=== PATIENT | female | born 1985 | race Caucasian/White ===

== ENCOUNTER 2019-08-12 14:28 | Outpatient (RCR) | payer OTHER, SELFPAY ==
[2019-08-15] MEDS: RHO(D) IMMUNE GLOBULIN 300 MCG SYRINGE IM (18:20)
[2019-10-15 08:37] VITALS: BP 153/80; PULSE 69
== END 2019-11-10 23:59 | disposition home or self-care (01) ==
LOC: ANHLAB 14:28
PROVIDERS: PCP Family Medicine; Visit Provider Obstetrics & Gynecology
DX: Z29.13 Encounter for prophylactic Rho(D) immune globulin (principal); O36.0990 Maternal care for other rhesus isoimmunization, unspecified trimester, not applicable or unspecified; Z3A.00 Weeks of gestation of pregnancy not specified
CPT/HCPCS: 36415; 90384; 96372; J2790

== ENCOUNTER 2019-10-15 08:41 | Inpatient (IN) | payer OTHER, SELFPAY ==
[2019-10-15] VITALS (99 sets, daily range): BP systolic 97–147; BP diastolic 52–95; PULSE 58–180; RESP 18; TEMP 36.7–36.9; O2SAT 90–100; BMI 42.8
--- NOTE | 2019-10-15 08:50 | WPDOBADMIT ---
Obstetrics - Admit Note Admission Note: record reviewed. Additions to the history and/or subsequent changes in the physical findings follow. 29 y/o at 39 weeks here desiring induction of labor. GBS neg. AVSS NST reactive TOCO: irregular contractions ABD soft, nontender, gravid, vertex EXT nontender Cervix 3/50/-2. AROM with clear fluid. IUPC placed. A: IUP at term with favorable cervix. P: Oxytocin. Anticipate .
[2019-10-15] MEDS: AMPICILLIN 2 GM/NS 100 ML 2 GM/100 ML BAG IVPB (08:57)
[2019-10-15] MEDS: LACTATED RINGERS 1,000 ML 125 ML IV CONT ×2 (08:58→10:06)
--- NOTE | 2019-10-15 09:00 | WPDOBADMIT ---
Obstetrics - Admit Note Admission Note: record reviewed. Additions to the history and/or subsequent changes in the physical findings follow. 33 y/o at 39 2/7 weeks here with contractions. Cervix 6cm on admission. GBS pos. Pregancy otherwise uncomplicated. AVSS NST reactive TOCO: contractions every 2-3 min ABD soft, nontender, gravid, vertex EXT nontender Cervix 6/80/-2 A: IUP at term with labor. GBS pos. P: Ampcillin. Anticipate .
[2019-10-15 09:09] LABS: Basophils Percent Auto 0.4 % (0.2-1.2); Eosinophils Percent Auto 0.5 % (0-4.4); Hematocrit 34.8 % (37.0-47.0); Hemoglobin 11.6 g/dL (12.0-15.0); Immature Granulocyte Absolute 0.04 K/mm3 (0.00-0.031); Immature Granulocyte Percent A 0.5 % (0-0.5); Lymphocytes Absolute Auto 1.84 K/mm3 (0.9-3.2); Lymphocytes Percent Auto 23.2 % (18.3-44.2); Mean Corpuscular HGB Conc 33.3 g/dl (32-36); Mean Corpuscular Hemoglobin 29.9 pg (26-34); Mean Corpuscular Volume 89.7 fl (80-100); Mean Platelet Volume 10.6 fl (7.4-10.4); Monocytes Absolute Auto 0.3 K/mm3 (0.1-0.6); Monocytes Percent Auto 3.7 % (2.6-8.5); Neutrophils Absolute Auto 5.7 K/mm3 (1.3-6.7); Neutrophils Percent Auto 71.7 % (45.5-73.1); Platelet Count Result 147 k/mm3 (150-375); Red Blood Count 3.88 M/mm3 (4.2-5.4); Red Cell Distribution Width 15.2 % (11.5-14.5); White Blood Count 7.9 K/mm3 (4.5-10.0)
--- NOTE | 2019-10-15 09:12 | LDADM ---
This patient, Melba Mcguire, was admitted to Labor/Delivery/Recovery 105 on 10/15/19 at 08:41. Plans for labor, pain management and were discussed with patient. Patient/family oriented to hospital policies and general routines including ID bracelet, bed and alarms, visiting hours, pain management, procedures, bathroom and other care routines, personal items, smoking policy, room service/diet and guest tray routines, security routines, call light, and visiting hours. Patient/Family are encouraged to report perceived risks to care and to ask questions if they do not understand what they are told or what they should do. See OBIX for further documentation.
--- NOTE | 2019-10-15 09:45 | WPDANESEPP ---
Anes - Eval Pre Procedure Procedure: Labor Epidural Date/Time: 10/15/19 09:45 Surgeon: Dr. Higginbotham Preop Diagnosis: Labor Pain Pre Op Diagnosis: labor Patient Data Age: 33 Gender: F Height: 5 ft 6 in Weight: 120.5 kg Last Vital Signs Pulse 77 10/15/19 09:42 BP 141/67 H 10/15/19 09:42 Pulse Ox 100 10/15/19 09:44 Allergies Allergy/AdvReac Type Severity Reaction Status Date / Time No Known Allergies Allergy Unverified 07/12/17 15:37 Laboratory Tests 10/15/19 10/15/19 09:01 09:01 WBC 7.9 K/mm3 K/mm3 (4.5-10.0) RBC 3.88 M/mm3 L M/mm3 (4.2-5.4) Hgb 11.6 g/dL L g/dL (12.0-15.0) Hct 34.8 % L % (37.0-47.0) MCV 89.7 fl fl (80-100) MCH 29.9 pg pg (26-34) MCHC 33.3 g/dl g/dl (32-36) RDW 15.2 % H % (11.5-14.5) Plt Count 147 k/mm3 L k/mm3 (150-375) MPV 10.6 fl H fl (7.4-10.4) Immature Gran % (Auto) 0.5 % % (0-0.5) Neut % (Auto) 71.7 % % (45.5-73.1) Lymph % (Auto) 23.2 % % (18.3-44.2) [place] % (Auto) 3.7 % % (2.6-8.5) Eos % (Auto) 0.5 % % (0-4.4) Baso % (Auto) 0.4 % % (0.2-1.2) Lymph # (Auto) 1.84 K/mm3 K/mm3 (0.9-3.2) [place] # (Auto) 0.3 K/mm3 K/mm3 (0.1-0.6) Eos # (Auto) 0.0 K/mm3 K/mm3 (0-0.3) Baso # (Auto) 0.0 K/mm3 K/mm3 (0.0-0.1) Abs Immat Gran (auto) 0.04 K/mm3 H K/mm3 (0.00-0.031) Absolute Neuts (auto) 5.7 K/mm3 K/mm3 (1.3-6.7) Absolute Nucleated RBC 0.0 K/mm3 K/mm3 (0.0-0.012) Nucleated RBC % 0.0 % % (0.0-0.2) RPR Pending : gestational age (JOSETTE 10/14/19) HCG: positive Patient hx anesthesia problems: none Family hx anesthesia problems: none [facility] Social History Social History (Updated 09/20/19 @ 15:42 by Rena Clayton RN) Smoking status: Never smoker Alcohol intake: current Alcohol use details: Not while . Substance use: never Living arrangements: with family Occupation/Education: occupation Gender identity (if verbalized by the patient): Female Spiritual care concerns: No Agree to blood products: Yes Exam Day of Procedure 10/15/19 09:45 Patient weight: obese Heart: regular rate and rhythm Lungs: normal air movement Airway: Mallampati scale class II Neurological: alert and oriented
[2019-10-15 10:09] LABS: Alanine Aminotransferase 16 U/L (4-35); Albumin Level 3.6 g/dL (3.5-5.1); Alkaline Phosphatase 125 U/L (38-126); Aspartate Amino Transferase 16 U/L (14-36); Bilirubin,Total 0.3 mg/dL (0.2-1.3); Blood Urea Nitrogen 9 mg/dL (7-17); Calcium 9.2 mg/dL (8.4-10.2); Carbon Dioxide 26 mmol/L (22-30); Chloride 97 mmol/L (98-107); Estimated CRCL calculation 150 ml/min; Estimated Glomerular Filt Rate > 60; Glucose 121 mg/dL (65-105); Sodium 136 mmol/L (137-145)
[2019-10-15] MEDS: AMPICILLIN 1 GM/NS 50 ML 1 GM/50 ML BAG IVPB (12:37)
[2019-10-15] MEDS: IBUPROFEN 600 MG TABLET PO (18:00)
[2019-10-15] MEDS: WITCH HAZEL 40 PADS 1 PAD TOPICAL (18:00)
--- NOTE | 2019-10-15 18:55 | OBPPTRN ---
Patient transferred to post room #277 via (wheelchair) - infant arrived to unit via crib. Support person present. Oriented to unit, room, information board, rooming in, admission packet and security measures. Patient verbalizes understanding.
--- NOTE | 2019-10-15 19:32 | P.PCNOB_ITS ---
OB - Delivery Note Procedure Delivery date: 10/15/19 Procedure: Delivery monitor: external FHT and external uterine Route of delivery: Laceration description: Periurethral - 2nd Degree Delivery repair: vicryl (3-0 Vicryl) Specimen: Yes (Cord blood) Estimated blood loss (mL): 420 Anesthesia type: Epidural Disposition: PACU Complications: None Narrative: [id number] 4 para 1021 at 39 2/7 weeks gestation who presented to the hospital with complaint of contractions. Labor was diagnosed. She received ampicillin for GBS colonization. Amniotomy was performed with return of clear fluid. She received an epidural for pain control. Her labor progressed and her cervix dilated completely. She pushed with good effort and delivered the 's head to the perineum, followed by the body. The nose and mouth were bulb suctioned. After a delay, the cord was clamped and cut. The infant was handed off the field. Cord blood was collected. The placenta delivered spontaneously and was grossly normal in appearance. The usual 3 vessel cord was noted. A second degree midline perineal laceration was sustained. This was reapproximated using 3 0 Vicryl in the usual layered fashion. Excellent hemostasis resulted as did excellent reapproximation of the normal anatomy. Needle and instrument counts were correct. The patient was taken to recovery room in stable condition. The infant went to the nursery in stable condition. I was present and scrubbed for the entire delivery. [place] Baby Date of : 10/15/19 Time of : 15:05 Weeks of gestation at delivery: 39 Infant gender: Female Weight (pounds): 8 Weight (ounces): 8 presentation: vertex position: Left Occiput Anterior Placenta delivery description: Spontaneous and Normal Configuration cord vessel description: 3 Vessels and Nuchal Cord score one minute: 9 score five minutes: 9
--- NOTE | 2019-10-15 19:35 | PM.DS ---
DS: Diagnosis Admitting Diagnosis Admitting Diagnosis: labor at term Discharge Diagnosis (1) (normal spontaneous vaginal delivery): Code(s): O80 - Encounter for full-term uncomplicated delivery Status: Acute DS: Summary Time Spent with Patient Time attestation: Total time spent providing and/or coordinating discharge services: DS: Data Data Completed and Pending Labs on day of discharge: Labs from last 24 hours 10/15/19 10/15/19 10/15/19 09:45 09:01 09:01 WBC RBC Hgb Hct MCV MCH MCHC RDW Plt Count MPV Immature Gran % (Auto) Neut % (Auto) Lymph % (Auto) [place] % (Auto) Eos % (Auto) Baso % (Auto) Lymph # (Auto) [place] # (Auto) Eos # (Auto) Baso # (Auto) Abs Immat Gran (auto) Absolute Neuts (auto) Absolute Nucleated RBC Nucleated RBC % Sodium 136 L Potassium 4.0 Chloride 97 L Carbon Dioxide 26 BUN 9 Creatinine 0.60 L Estim Creat Clear Calc 150 Estimated GFR > 60 Glucose 121 H Calcium 9.2 Total Bilirubin 0.3 AST 16 ALT 16 Alkaline Phosphatase 125 Total Protein 7.0 Albumin 3.6 RPR Pending Blood Type A Negative Antibody Screen Positive Antibody Identification Inconclusive Antigen Identification Pending ELAINE, IgG Interpret Not Performed ELAINE, Poly Interpret Negative ELAINE, Complement Interp Not Performed 10/15/19 09:01 WBC 7.9 RBC 3.88 L Hgb 11.6 L Hct 34.8 L MCV 89.7 MCH 29.9 MCHC 33.3 RDW 15.2 H Plt Count 147 L MPV 10.6 H Immature Gran % (Auto) 0.5 Neut % (Auto) 71.7 Lymph % (Auto) 23.2 [place] % (Auto) 3.7 Eos % (Auto) 0.5 Baso % (Auto) 0.4 Lymph # (Auto) 1.84 [place] # (Auto) 0.3 Eos # (Auto) 0.0 Baso # (Auto) 0.0 Abs Immat Gran (auto) 0.04 H Absolute Neuts (auto) 5.7 Absolute Nucleated RBC 0.0 Nucleated RBC % 0.0 Sodium Potassium Chloride Carbon Dioxide BUN Creatinine Estim Creat Clear Calc Estimated GFR Glucose Calcium Total Bilirubin AST ALT Alkaline Phosphatase Total Protein Albumin RPR Blood Type Antibody Screen Antibody Identification Antigen Identification ELAINE, IgG Interpret ELAINE, Poly Interpret ELAINE, Complement Interp Discharge Plan Discharge Attending physician on discharge: Fritz Higginbotham Discharging Clinician: Fritz Higginbotham Patient Disposition: Home, Self-Care Activity: pelvic rest Diet: regular Discharge Instructions: Call or return if temperature above 100.4? F, increased abdominal pain, increased vaginal bleeding or any new problems. Stand Alone Forms: General Discharge Information Follow-up/Referrals: Fritz Higginbotham MD [Physician] - (6 weeks) Discharge Medications: New ibuprofen 600 mg tablet 600 mg PO Q6H PRN (Reason: cramps) Qty: 30 RF: 0 ibuprofen 600 mg tablet 600 mg PO Q6H PRN (Reason: cramps) Qty: 30 RF: 0 Date of admission: 10/15/19 08:41 Primary Care Provider: Nayely,Teresa Schilling Admitting Provider: Fritz Higginbotham Attending physician on admission: Fritz Higginbotham
[2019-10-16] MEDS: IBUPROFEN 600 MG TABLET PO ×2 (04:39→12:34)
[2019-10-16 05:36] LABS: Hematocrit 29.4 % (37.0-47.0); Hemoglobin 9.8 g/dL (12.0-15.0)
[2019-10-16] MEDS: DOCUSATE SODIUM 100 MG CAPSULE PO ×2 (07:25→17:31)
[2019-10-16] MEDS: WITCH HAZEL 40 PADS 1 PAD TOPICAL (07:25)
[2019-10-16] MEDS: BENZOCAINE 20% AER SPR (*SP) 56 GM CAN 1 SPRAY TOPICAL (07:25)
[2019-10-16] MEDS: POLYSACCHARIDE IRON COMPLEX 150 MG CAPSULE PO ×2 (07:25→17:31)
[2019-10-16] MEDS: MULTIVIT/MIN/PREN/FOL AC/IRON TABLET 1 TAB PO (07:26)
[2019-10-16 07:58] LABS: Rapid Plasma Reagin Non-Reactive (NonReactive)
[2019-10-16 08:00] VITALS: BP 124/68; PULSE 81; RESP 18; TEMP 36.6; O2SAT 100
--- NOTE | 2019-10-16 08:45 | PM.OBPNVD ---
OB - PN: Subj Subjective Date/time seen: 10/16/19 0845 Narrative: Pain OK. OB - PN: Obj Data Labs CBC & Chem 7: 10/16/19 04:26 10/15/19 09:45 Labs: Laboratory Results - last 24 hr 10/15/19 10/16/19 10/16/19 09:01 04:26 04:26 Hgb 9.8 L Hct 29.4 L RPR Non-reactive Blood Type A Negative Antibody Screen Positive Antibody Identification Passive Due to RH Imm Glob Antigen Identification Cancelled ELAINE, IgG Interpret Not Performed ELAINE, Poly Interpret Negative ELAINE, Complement Interp Not Performed Screen Negative Baby's Blood Type O pos Baby's ELAINE Negative Doses of RhIg Required 1 OB - PN A/P Plan Comments: A: PPD#1, doing well. P: Routine care. Exam Psych: Other: AVSS ABD soft, nontender, fundus firm EXT nontender
--- NOTE | 2019-10-16 12:30 | PC.NURSE ---
Consult with pt., mother reports this to be 2nd child to breastfeed. Mother states she has slight tenderness due to has a tight tongue. Suggested mother discussed with ICP today for evaluation. will be ready to feed within the hour, requested mother all out for tongue evaluation and assist with deep latch. Reviewed infant feeding cues, frequencies, duration of feedings, feeding elimination flow sheet, and signs of adequate intake. Reviewed positioning/alignment, holding breast and asymmetrical latch on. Discussed rational or each to assist with maintaining deep latch. Nipple care reviewed. Instructed mother to call out for RN assistance if she is unable to latch infant for feeding or she has discomfort with nursing. Instructed feeding should be initiated three hours from start of last feeding or if feeding cues are noted before. Mother voiced understanding of information shared.
[2019-10-16] MEDS: RHO(D) IMMUNE GLOBULIN 300 MCG SYRINGE IM (15:26)
[2019-10-16 19:40] VITALS: BP 138/73; PULSE 78; RESP 16; TEMP 36.7; O2SAT 100
[2019-10-17] MEDS: IBUPROFEN 600 MG TABLET PO ×2 (02:45→10:17)
[2019-10-17] MEDS: TETANUS,DIPHTHERIA,AC PERTUSSIS ADULT 0.5 ML (ADACEL) IM (05:34)
[2019-10-17] MEDS: DOCUSATE SODIUM 100 MG CAPSULE PO (07:33)
[2019-10-17] MEDS: MULTIVIT/MIN/PREN/FOL AC/IRON TABLET 1 TAB PO (07:34)
[2019-10-17] MEDS: WITCH HAZEL 40 PADS 1 PAD TOPICAL (07:35)
[2019-10-17] MEDS: BENZOCAINE 20% AER SPR (*SP) 56 GM CAN 1 SPRAY TOPICAL (07:35)
[2019-10-17] MEDS: POLYSACCHARIDE IRON COMPLEX 150 MG CAPSULE PO (07:35)
[2019-10-17 08:00] VITALS: BP 110/64; PULSE 89; RESP 18; TEMP 36.2; O2SAT 100
--- NOTE | 2019-10-17 08:56 | PM.OBPNVD ---
OB - PN: Subj Subjective Date/time seen: 10/17/19 08:56 Narrative: Pain OK. Would like to go home. OB - PN: Obj Data Labs CBC & Chem 7: 10/16/19 04:26 10/15/19 09:45 Labs: Laboratory Results - last 24 hr 10/16/19 04:26 Blood Type A Negative Antibody Screen Positive Antibody Identification Passive Due to RH Imm Glob Antigen Identification Cancelled ELAINE, IgG Interpret Not Performed ELAINE, Poly Interpret Negative ELAINE, Complement Interp Not Performed Screen Negative Baby's Blood Type O pos Baby's ELAINE Negative Doses of RhIg Required 1 OB - PN A/P Plan Comments: A: PPD#2, doing well. P: Home to f/u 6 weeks. Exam Psych: Other: AVSS ABD soft, nontender, fundus firm EXT nontender
--- NOTE | 2019-10-17 09:30 | PC.NURSE ---
Mother is able to independently latch infant with appropriate positioning/alignment. She denies any nipple discomfort, is feeding as required and waking to feed if needed. has had 9 effective feedings in the past 24 hours, and is currently meeting outcomes for weight, output, jaundice and feeding frequencies. Mother states she feels confident to continue effective at home. Reviewed transition to breast milk, signs of adequate intake, and engorgement/relief. Instructed to call ICP if intake/output less than required. Reviewed regular medications mother is taking. Information provided per Reina. Reviewed community resources on the [facility] website and in the Mom/Baby guide. Information on outpatient services provided. Mother has no further questions at this time.
[2019-10-18 07:44] VITALS: BP 133/66; PULSE 87; RESP 20; TEMP 36.6
== END 2019-10-17 10:42 | disposition home or self-care (01) | DRG 807 ==
LOC: ANHLDR 16:24 → ANHOB2 18:59
PROVIDERS: Admitting Provider Obstetrics & Gynecology; PCP Family Medicine; Visit Provider Obstetrics & Gynecology
DX: O99.824 Streptococcus B carrier state complicating childbirth (principal); Z37.0 Single live birth; Z3A.39 39 weeks gestation of pregnancy; O70.1 Second degree perineal laceration during delivery; O36.8330 Maternal care for abnormalities of the fetal heart rate or rhythm, third trimester, not applicable or unspecified; O69.81X0 Labor and delivery complicated by cord around neck, without compression, not applicable or unspecified
CPT/HCPCS: 36415; 80053; 85014; 85018; 85025; 86592; 86850; 86880; 86900; 86901; 86902; 90384; 90715; A9270; J0290; J2590; J2790; J2795; J7120

== ENCOUNTER 2019-10-20 05:53 | Emergency (ER) | payer OTHER, SELFPAY ==
--- NOTE | ~2019-10-20 | CT_ITS ---
EXAMINATION: CT abdomen pelvis w con DATE: 10/20/2019 07:58 INDICATION: Appendicitis 5 days TECHNIQUE: Computed tomography (CT) of the abdomen and pelvis was performed with 100 mL Omnipaque-350 intravenous contrast. Automated exposure control and iterative reconstruction technique were employe d. The dose-length product was 1233.94 mGy-cm. COMPARISON: None FINDINGS: Mild dependent atelectasis in the bilateral lower lobes. A couple small calcified subpleural nodules in the right lower lobe consistent with old granulomatous disease. Heart size is normal. No pericardi al or pleural effusion. Liver, gallbladder, pancreas, bilateral adrenal glands and kidneys are normal . Splenomegaly measuring 22.2 cm. Normal appendix. Bowels are normal with no abnormal wall thickening or obstruction. Enlarged post gravid uterus. Bilateral adnexa and bladder are unremarkable. Very sma ll amount of free fluid in the pelvis which may be physiologic. No pathologically enlarged abdominal or pelvic lymphadenopathy. Bones are unremarkable. IMPRESSION: 1. Normal appendix. 2. Nonspecific small amount of free fluid in the pelvis which may be physiologic. 3. Nonspecific splenomegaly measuring 22.2 cm. 4. Enlarged post gravid uterus. Reviewed, dictated and finalized at location A. AR ATTENDANT IMPRESSION: 1. Normal appendix. 2. Nonspecific small amount of free fluid in the pelvis which may be physiologi c. 3. Nonspecific splenomegaly measuring 22.2 cm. 4. Enlarged post gravid uterus.
[2019-10-20 05:53] VITALS: BP 150/78; PULSE 80; RESP 16; TEMP 35.9; O2SAT 100
--- NOTE | 2019-10-20 06:20 | PC.NURSE ---
urine sent to lab at this time.
[2019-10-20 06:41] LABS: Add Urine Microscopic? YES; Appearance Urine Clear (Clear); Bilirubin Urine Negative (Negative); Blood Urine 3+ (Negative); Color Urine Straw (Yellow); Glucose Urine UA Negative (Negative); Ketones Urine Negative (Negative); Leukocyte Esterase Ur Trace LEU/UL (Negative); Mucus Urine Rare /lpf; Nitrate Urine Negative (Negative); Protein Urine Negative (Negative); RBC Urine 21-50 /hpf (0-2); Specific Grav Ur 1.014 (1.001-1.035); Squamous Epithelial Cell Urine Moderate /hpf (Few); Urobilinogen Urine Negative mg/dL (<2.0)
--- NOTE | 2019-10-20 07:11 | ED.ABDPAIN ---
HPI - Abdominal Pain General Chief Complaint: Urogenital-Female Stated Complaint: LOWER ABD PAIN Time Seen by Provider: 10/20/19 06:34 Source: patient Mode of arrival: ambulatory Limitations: no limitations History of Present Illness HPI narrative: 33 years old white female status post vaginal delivery 5 days ago presents with pain lower abdomen bilaterally, dull aching, patient denies any fever, chills, nausea, vomiting, or radiation of pain. Patient is 4, para 2, 2. Patient does not smoke or drink. MD elicited complaint: abdominal pain Pertinent past history: none Pain Consistency: constant Related Data Home Medications Medication Instructions Recorded Confirmed ferrous sulfate 10/20/19 Allergies Allergy/AdvReac Type Severity Reaction Status Date / Time No Known Allergies Allergy Unverified 07/12/17 15:37 Review of Systems Review of Systems: Narrative: CONSTITUTIONAL: Denies fever, chills, or sweats. EYES: Denies visual changes, redness, or discharge. ENT: Denies rhinorrhea, congestion, sore throat, or otalgia. CARDIOVASCULAR: Denies chest pain, palpitations, or edema. RESPIRATORY: Denies cough or dyspnea. GASTROINTESTINAL: Lower abdominal pain GENITOURINARY: Denies dysuria or hematuria. SKIN: Denies rash or itching. MUSCULOSKELETAL: Denies back pain, joint pain, or myalgia. NEUROLOGIC: Denies headache, numbness, or weakness. PSYCHIATRIC: Denies anxiety or depression. PMFSH Social History Social History Smoking status: Never smoker Alcohol intake: current Substance use: never Gender identity (if verbalized by the patient): Female Spiritual care concerns: No Agree to blood products: Yes Exam Narrative: Exam Narrative: General appearance: Well-developed, well-nourished Skin: Normal color Head: Normocephalic, nontraumatic Eyes: Clear conjunctiva ENT: Oropharynx normal, ears normal, nose normal Neck: Supple, nontender Chest and respiratory: Airway patent, no respiratory distress, no accessory muscle use Heart: Regular rate/rhythm Abdomen: Soft, tenderness of the suprapubic area, no organomegaly, quiet bowel sounds Vascular: Normal peripheral pulses, normal capillary refill. Musculoskeletal: Normal range of motion, nontender back Neurologic: Alert and oriented ?3, [employer] is normal as tested, no gross motor deficit Course Course Emergency Course: Unchanged Vital Signs Vital signs: Vital Signs Temperature 35.9 C L 10/20/19 05:53 Pulse Rate 80 10/20/19 05:53 Respiratory Rate 16 10/20/19 05:53 Blood Pressure 150/78 H 10/20/19 05:53 Pulse Oximetry 100 10/20/19 05:53 Temperature 36.4 C 10/20/19 08:16 Pulse Rate 64 10/20/19 08:16 Respiratory Rate 16 10/20/19 08:16 Blood Pressure 145/87 H 10/20/19 08:16 Pulse Oximetry 100 10/20/19 08:16 MDM - Abdominal Pain MDM Narrative Medical decision making narrative: Lower abdominal pain status post vaginal delivery 5 days ago my differential diagnosis is urinary tract infection, vaginal tears or laceration, infection, endometritis, appendicitis, constipation, kidney stone. My plan to get labs, CT abdomen and pelvis with IV contrast, IV fluid, pelvic exam. Further plan to follow Differential Diagnosis Differential diagnosis: Likely acute appendicitis and constipation; Unlikely abdominal pain Lab Data Result diagrams: 10/20/19 07:03 10/20/19 07:49 Labs: Lab Results 10/20/19 10/20/19 10/20/19 Range/Units 06:18 07:03 07:03 WBC 5.7 (4.5-10.0) K/mm3 RBC 3.52 L (4.2-5.4) M/mm3 Hgb 10.4 L (12.0-15.0) g/dL Hct 32.7 L (37.0-4
[2019-10-20 07:50] LABS: Basophils Percent Auto 0.3 % (0.2-1.2); Eosinophils Absolute Auto 0.1 K/mm3 (0-0.3); Eosinophils Percent Auto 1.6 % (0-4.4); Hematocrit 32.7 % (37.0-47.0); Hemoglobin 10.4 g/dL (12.0-15.0); Immature Granulocyte Absolute 0.03 K/mm3 (0.00-0.031); Immature Granulocyte Percent A 0.5 % (0-0.5); Lymphocytes Absolute Auto 1.51 K/mm3 (0.9-3.2); Lymphocytes Percent Auto 26.4 % (18.3-44.2); Mean Corpuscular HGB Conc 31.8 g/dl (32-36); Mean Corpuscular Hemoglobin 29.5 pg (26-34); Mean Corpuscular Volume 92.9 fl (80-100); Mean Platelet Volume 10.2 fl (7.4-10.4); Monocytes Absolute Auto 0.3 K/mm3 (0.1-0.6); Monocytes Percent Auto 5.4 % (2.6-8.5); Neutrophils Absolute Auto 3.8 K/mm3 (1.3-6.7); Neutrophils Percent Auto 65.8 % (45.5-73.1); Platelet Count Result 163 k/mm3 (150-375); Red Blood Count 3.52 M/mm3 (4.2-5.4); Red Cell Distribution Width 14.9 % (11.5-14.5); White Blood Count 5.7 K/mm3 (4.5-10.0)
[2019-10-20 07:52] LABS: Blood Urea Nitrogen 10 mg/dL (8-26); Estimated Glomerular Filt Rate > 60
[2019-10-20 07:58] LABS: Alanine Aminotransferase 18 U/L (4-35); Albumin Level 3.6 g/dL (3.5-5.1); Alkaline Phosphatase 87 U/L (38-126); Aspartate Amino Transferase 18 U/L (14-36); Bilirubin,Total 0.3 mg/dL (0.2-1.3); Blood Urea Nitrogen 12 mg/dL (7-17); Calcium 8.6 mg/dL (8.4-10.2); Carbon Dioxide 29 mmol/L (22-30); Chloride 102 mmol/L (98-107); Estimated Glomerular Filt Rate > 60; Glucose 82 mg/dL (65-105); Lipase 28 U/L (23-300); Potassium 4.1 mmol/L (3.4-5.0); Sodium 138 mmol/L (137-145)
[2019-10-20 08:16] VITALS: BP 145/87; PULSE 64; RESP 16; TEMP 36.4; O2SAT 100
[2019-10-20 09:15] VITALS: BP 149/69; PULSE 63; RESP 18; TEMP 36.7; O2SAT 99
== END 2019-10-20 09:49 | disposition home or self-care (01) ==
PROVIDERS: Emergency Provider Emergency Medicine; PCP Family Medicine
DX: O90.89 Other complications of the puerperium, not elsewhere classified (principal); R10.30 Lower abdominal pain, unspecified
CPT/HCPCS: 36415; 74177; 80053; 81001; 83690; 85025; 87077; 87086; 87088; 99284; Q9967

== ENCOUNTER 2020-01-30 13:24 | Outpatient (CLI) | payer OTHER, SELFPAY ==
--- NOTE | ~2020-01-30 | US_ITS ---
EXAMINATION: US breast RT limited HISTORY: Breast-feeding patient with palpable lump in the upper outer quadrant of the right breast TECHNIQUE: Limited right breast ultrasound is performed. FINDINGS: There is no evidence of focal abnormal cystic or solid mass in the vicinity of the reported palpable abnormality of concern. IMPRESSION: No specific sonographic correlate is identified for the reported palpable abnormality of concern. Fur ther evaluation at this time should be based on clinical assessment. Continued follow-up physical exa mination is recommended. BI-RADS Category 1: Negative Reviewed, dictated and finalized at location A. IMPRESSION: No specific sonographic correlate is identified for the reported palpable abnor mality of concern. Further evaluation at this time should be based on clinical assessment. Continued follow-up physical examination is recommended. BI-RADS Category 1: Negative
== END 2020-01-30 13:25 | disposition home or self-care (01) ==
LOC: ANHIMG 13:27
PROVIDERS: PCP Family Medicine; Visit Provider Obstetrics & Gynecology
DX: R92.8 Other abnormal and inconclusive findings on diagnostic imaging of breast (principal)
CPT/HCPCS: 76642

== ENCOUNTER → 2020-11-16 14:23 | Outpatient (CLI) | payer OTHER, SELFPAY ==
--- NOTE | ~2020-11-16 | US_ITS ---
EXAMINATION: US thyroid DATE: 11/16/2020 14:40 INDICATION: Nontoxic goiter. TECHNIQUE: Multiple ultrasound images of the thyroid were obtained. COMPARISON: None. FINDINGS: The right thyroid lobe measures 3.8 x 0.8 x 1.4 cm. The left thyroid lobe measures 3.7 x 1.3 x 1.4 c m. There is normal echotexture and echogenicity throughout the thyroid gland. No discrete nodules id entified. Normal vascular flow is present. IMPRESSION: 1. Normal thyroid. Reviewed, dictated and finalized at location A. IMPRESSION: 1. Normal thyroid.
== END ==
PROVIDERS: PCP Family Medicine; Visit Provider Family Medicine
DX: E04.9 Nontoxic goiter, unspecified (principal)
CPT/HCPCS: 76536

== ENCOUNTER 2023-07-11 07:00 | Outpatient (NON) | payer OTHER, SELFPAY | END 2023-07-11 07:01 | disposition home or self-care (01) | PROVIDERS: PCP Family Medicine; Visit Provider Nurse Practitioner | DX: D23.62 Other benign neoplasm of skin of left upper limb, including shoulder (principal) | CPT/HCPCS: 88305 ==

== ENCOUNTER 2023-12-30 17:02 | Emergency (ER) | payer OTHER, SELFPAY ==
--- NOTE | ~2023-12-30 | CT_ITS ---
EXAMINATION: CT abdomen pelvis w con DATE: 12/30/2023 19:50 INDICATION: epigastric pain TECHNIQUE: Computed tomography (CT) of the abdomen and pelvis was performed with 100 mL Omnipaque-350 intravenous contrast. Automated exposure control and iterative reconstruction technique were employe d. The dose-length product was 1129.24 mGy-cm. COMPARISON: 10/20/2019. FINDINGS: Lower thorax: Unremarkable Liver: Enlarged. Biliary/Gallbladder: Gallbladder is normal. No bile duct dilation. Pancreas: No mass or duct dilation. Spleen: Enlarged. Adrenals:No mass. Kidneys: No suspicious mass, obstructing stone, or hydronephrosis. GI tract: No small or large bowel dilation. Normal appendix. Mesentery/Peritoneum: Multiple enlarged mesenteric lymph nodes with subtle fat halos. No ascites or f ree air. Retroperitoneum: No mass. Pelvis: Nearly empty urinary bladder. Retroverted uterus. IUD, in good position normal bilateral ovar ies. Soft Tissues: Soft tissues and body wall unremarkable. Bones: No acute osseous finding. IMPRESSION: Hepatosplenomegaly. Mesenteric panniculitis. Reviewed, dictated and finalized at location K.
[2023-12-30 17:15] VITALS: BP 167/97; PULSE 91; RESP 16; TEMP 36.4; O2SAT 100
--- NOTE | 2023-12-30 17:17 | ED.ABDPAIN ---
HPI - Abdominal Pain General Chief Complaint: Abdominal Pain Stated Complaint: epigastric pain Time Seen by Provider: 12/30/23 17:17 Focused HPI: This is a 38-year-old female that presents to the emergency department for epigastric pain. Ongoing over the last week. Associated with nausea and vomiting. Does also report some diarrhea. She has tried taking [id number] medications with little relief. Reports she is currently taking Semaglutide and is wondering if she is experiencing side effects. Denies fevers. GENERAL: Well-appearing, well-nourished, and in no acute distress. HEAD: Normocephalic, atraumatic. CHEST: Clear to auscultation. ?No respiratory distress. HEART: Regular rate and rhythm.? NEURO: ?Alert and oriented x3. Patient screened in triage and initial orders placed.? ?Additional care and disposition to be based upon?diagnostic testing and treatment. Related Data Home Medications Medication Instructions Recorded Confirmed ferrous sulfate 325 mg (65 mg 10/20/19 iron) tablet Allergies Allergy/AdvReac Type Severity Reaction Status Date / Time No Known Allergies Allergy Verified 12/30/23 17:18 Review of Systems Review of Systems: CONSTITUTIONAL: Denies fever GASTROINTESTINAL: Reports abdominal pain, nausea, vomiting, and diarrhea. GENITOURINARY: Denies dysuria All systems reviewed & are unremarkable except as noted in HPI and below PMFSH Past Medical History Medical History (Updated 12/30/23 @ 21:39 by Prisca Eid PA-C) Dermatofibroma of back Social History Social History Smoking status: Never smoker Alcohol intake: current Alcohol use details: Not while . Substance use: never Living arrangements: with family Occupation/Education: occupation Gender identity (if verbalized by the patient): Female Spiritual care concerns: No Agree to blood products: Yes Exam Narrative: GENERAL: Well-appearing, well-nourished, and in no acute distress. HEAD: Normocephalic, atraumatic. EYES: EOMI. CHEST: Clear to auscultation. No respiratory distress. No wheezes rales or rhonchi HEART: Regular rate and rhythm. No murmur heard. Normal peripheral pulses. ABDOMEN: Soft, nontender, nondistended, normal active bowel sounds. EXTREMITIES: Normal range of motion. No edema. SKIN: Warm, dry, no rash. NEURO: No focal deficits. Alert and oriented x3. PSYCH: Normal mood and affect Course Course Emergency Course: Patient updated on her workup and agrees with plan of care. Reports feeling much better. Tolerating p.o. challenge Vital Signs Vital signs: Vital Signs Temperature 97.5 F L 12/30/23 17:15 Pulse Rate 91 12/30/23 17:15 Respiratory Rate 16 12/30/23 17:15 Blood Pressure 167/97 H 12/30/23 17:15 Pulse Oximetry 100 12/30/23 17:15 Oxygen Delivery Room Air 12/30/23 17:15 Temperature 97.5 F L 12/30/23 17:15 Pulse Rate 75 12/30/23 21:10 Respiratory Rate 18 12/30/23 21:10 Blood Pressure 137/82 12/30/23 21:10 Pulse Oximetry 99 12/30/23 21:10 Oxygen Delivery Room Air 12/30/23 17:15 MDM - Abdominal Pain MDM Narrative Medical decision making narrative: Patient presents to the emergency department for epigastric abdominal pain ongoing over the last week. She is afebrile and nontoxic appearing. Hypertensive upon arrival, this normalized with treatment of her pain. CBC and metabolic panel without concerning findings. Lipase is normal. UA without evidence of infection. test is negative. CT abdomen and pelvis shows hepatosplenomegaly. Also shows possible mesenteric panniculitis. Patient was updated on her workup. Reports relief with Protonix and Zofran. She was able to tolerate p.o. challenge. Instructed to continue Pepcid. She will be given follow-up with gastroenterology. She was given warnings to return to the ER Differential Diagnosis Differential diagn
[2023-12-30 17:30] LABS: Basophils Percent Auto 0.3 % (0.2-1.2); Eosinophils Absolute Auto 0.3 K/mm3 (0-0.3); Eosinophils Percent Auto 3.6 % (0-4.4); Hematocrit 41.4 % (37.0-47.0); Hemoglobin 13.9 g/dL (12.0-15.0); Immature Granulocyte Absolute 0.02 K/mm3 (0.00-0.031); Immature Granulocyte Percent A 0.3 % (0-0.5); Lymphocytes Absolute Auto 1.61 K/mm3 (0.9-3.2); Lymphocytes Percent Auto 21.2 % (18.3-44.2); Mean Corpuscular HGB Conc 33.6 g/dl (32-36); Mean Corpuscular Hemoglobin 29.1 pg (26-34); Mean Corpuscular Volume 86.6 fl (80-100); Mean Platelet Volume 9.7 fl (7.4-10.4); Monocytes Absolute Auto 0.4 K/mm3 (0.1-0.6); Monocytes Percent Auto 5.5 % (2.6-8.5); Neutrophils Absolute Auto 5.3 K/mm3 (1.3-6.7); Neutrophils Percent Auto 69.1 % (45.5-73.1); Platelet Count Result 217 k/mm3 (150-375); Red Blood Count 4.78 M/mm3 (4.2-5.4); Red Cell Distribution Width 13.7 % (11.5-14.5); White Blood Count 7.6 K/mm3 (4.5-10.0)
[2023-12-30 17:39] LABS: Alanine Aminotransferase 31 U/L (6-35); Albumin Level 4.8 g/dL (3.5-5.1); Alkaline Phosphatase 85 U/L (38-126); Anion Gap 9 mmol/L (4-12); Aspartate Amino Transferase 23 U/L (14-36); Bilirubin,Total 0.8 mg/dL (0.2-1.3); Blood Urea Nitrogen 11 mg/dL (7-17); Calcium 9.8 mg/dL (8.4-10.2); Carbon Dioxide 27 mmol/L (22-30); Chloride 105 mmol/L (98-107); Estimated CRCL calculation 102 ml/min; Estimated Glomerular Filt Rate > 60; Glucose 104 mg/dL (65-110); Lipase 81 U/L (23-300); Potassium 3.9 mmol/L (3.4-5.0); Sodium 141 mmol/L (137-145)
--- NOTE | 2023-12-30 18:37 | ECG_ITS ---
SEE SCANNED COPY FOR CONFIRMED REPORT MTDD
[2023-12-30 19:10] LABS: Troponin I < 0.012 ng/mL (0.000-0.034)
[2023-12-30] MEDS: ONDANSETRON INJ 4 MG/2 ML VIAL IV PUSH (19:18)
[2023-12-30] MEDS: PANTOPRAZOLE SODIUM IV 40 MG VIAL IV PUSH (19:19)
[2023-12-30 20:14] VITALS: BP 136/77; PULSE 74; RESP 16; O2SAT 100
[2023-12-30 20:34] LABS: Appearance Urine Clear (Clear); Bacteria Urine None Seen /hpf; Bilirubin Urine 1+ (Negative); Blood Urine Negative (Negative); Color Urine Dark Yellow (Yellow); Glucose Urine UA Negative (Negative); Ketones Urine 2+ mg/dL (Negative); Leukocyte Esterase Ur Negative LEU/UL (Negative); Mucus Urine Present /lpf; Need Manual Microscopic Reviewed; Nitrate Urine Negative (Negative); Non Pathogenic Casts 0-2; Protein Urine Trace mg/dL (Negative); RBC Urine 0-2 /hpf (0-2); Squamous Epithelial Cell Urine None Seen /hpf (Few); Urobilinogen Urine 0.2 mg/dL (<2.0); WBC Urine 0-5 /hpf (0-3); pH Urine 5.5 (5.0-9.0)
[2023-12-30 20:41] LABS: Specific Grav Ur 1.065 (1.001-1.035)
[2023-12-30 20:42] LABS: Add Urine Microscopic? YES
[2023-12-30 21:10] VITALS: BP 137/82; PULSE 75; RESP 18; O2SAT 99
== END 2023-12-30 21:47 | disposition home or self-care (01) ==
PROVIDERS: Emergency Provider Physician Assistant; PCP Family Medicine
DX: K65.4 Sclerosing mesenteritis (principal); R10.13 Epigastric pain; R16.2 Hepatomegaly with splenomegaly, not elsewhere classified
CPT/HCPCS: 36415; 74177; 80053; 81001; 81025; 83690; 84484; 85025; 93005; 96374; 96375; 99284; C9113; J2405; Q9967

== ENCOUNTER 2024-07-03 08:09 | Emergency (ER) | payer OTHER, SELFPAY ==
--- NOTE | 2024-07-03 08:16 | ED.URI ---
HPI - URI/Sore Throat General Chief Complaint: Upper Respiratory Infection Stated Complaint: Sore Throat Time Seen by Provider: 07/03/24 08:19 Source: patient, RN notes reviewed and old records reviewed Mode of arrival: ambulatory Limitations: no limitations History of Present Illness HPI Narrative: 38-year-old female presents to the [facility] with complaints of a sore throat since yesterday. Took a ibuprofen yesterday. No treatment today. Onset (ago): day(s) (1) Treatments prior to arrival: ibuprofen Related Data Home Medications Medication Instructions Recorded Confirmed terbinafine HCl 1 % topical cream 1 applic topical DIRECTED 07/03/24 07/03/24 Allergies Allergy/AdvReac Type Severity Reaction Status Date / Time No Known Allergies Allergy Verified 07/03/24 08:10 Review of Systems Review of Systems: All systems reviewed & are unremarkable except as noted in HPI and below Constitutional: Constitutional: Reports no additional constitutional complaints ENT: Reports as per HPI and Reports sore throat Cardiovascular: Cardiovascular: Reports no additional cardiovascular complaints, Denies chest pain and Denies dyspnea Respiratory: Respiratory: Reports no additional respiratory complaints, Denies chest congestion, Denies cough and Denies dyspnea Gastrointestinal: Gastrointestinal: Reports no additional gastrointestinal complaints, Denies abdominal pain, Denies nausea and Denies vomiting Musculoskeletal: Musculoskeletal: Reports no additional musculoskeletal complaints Integumentary/Breasts: Skin/Breast: Reports system reviewed and no additional complaints, except as docu PMFSH Past Medical History Medical History Dermatofibroma of back Social History Social History Smoking status: Never smoker Alcohol intake: current Alcohol use details: Not while . Substance use: never Living arrangements: with family Occupation/Education: occupation Gender identity (if verbalized by the patient): Female Spiritual care concerns: No Agree to blood products: Yes Comments At the time of my signature, I reviewed and agree with the nursing past medical, surgical, social, and family history. There is no relevant family history pertinent to the patient complaint. Exam Const: General: cooperative, healthy appearing, comfortable, no acute distress, well developed, alert and well nourished Nutritional Appearance: well nourished Orientation/consciousness: patient oriented x3 Limitations: no limitations HENMT: Head: normal to inspection Ears: hearing grossly normal bilaterally, external ears normal, TM's normal bilaterally, EAC's normal, mastoids normal and no periauricular adenopathy Face/Nose/Sinus: Normal external nose present, normal facial exam and face symmetric Face and sinus: normal facial exam and face symmetric Mouth: Yes Normal oral and palatal mucosa present, Yes lip normal and Yes tongue normal Throat: uvula midline and abnormal tonsil bilateral erythema, exudates and hypertrophy Eyes: General: appearance normal, both eyes and all related structures Alignment and Position: alignment normal Periorbital: periorbital findings normal Neck: Neck: normal visual inspection, full ROM, no lymphadenopathy and no meningeal signs Chest: Chest palpation & inspection: normal inspection of the chest Resp: Effort & Inspection: normal respiratory effort and able to speak in complete sentences Auscultation: clear to auscultation bilaterally, no crackles, no rales, no rhonchi and no wheezes Cardio: Rate: regular rate Skin: General skin exam: normal color and no rashes or lesions noted Lesions: no lesions Rashes: no rashes Wounds: no wounds Neuro: General: patient oriented x3, gait normal, tone normal, moves all extremities and no meningeal signs Cognition (Neuro): normal cognition Speech: normal speech Gait exam (Neuro): Normal gait present Extrem: General: normal to inspection, full ROM, capillary refill normal and normal gait Psych: Appearance: grossly normal and well kempt Mental Status: mental status grossly normal Speech and movement: Normal speech and movement present and Clear speech present Affect: normal affect Attitude: cooperative Course Course Level of Care: Express Care Visit Vital Signs Vital signs: Vital Signs Oxygen Delivery Room Air 07/03/24 08:14 Temperature 100.1 F H 07/03/24 08:19 Pulse Rate 104 H 07/03/24 08:19 Respiratory Rate 20 07/03/24 08:19 Blood Pressure 133/83 07/03/24 08:19 Pulse Oximetry 100 07/03/24 08:19 Oxygen Delivery Room Air 07/03/24 08:19 Reviewed MDM - URI/Sore Throat MDM Narrative Medical decision making narrative: Patient sitting comfortably in exam room. Nontoxic, vitals are stable except low-grade fever, mildly tachycardic at 104 Patient presents 1 day history of a sore throat Patient is strep positive Patient appropriate for outpatient treatment and follow-up Discharge instructions reviewed with patient, as well as provided in writing per nursing staff. The instructions also include specific and strict return/GO TO THE ER as well as f/u information. All questions have been answered, and the patient deny any further questions with discharge and discharge plan. Some parts of this dictation were generated by voice recognition software and may contain typographical and/or grammatical inaccuracies. Differential Diagnosis Differential diagnosis: Likely upper respiratory infection, otitis media, viral infection and pharyngitis Lab Data Labs: Lab Results 07/03/24 Range/Units 08:30 POC Grp A Strep Screen Positive (Negative) Reviewed Critical Care Time Critical Care Time Critical Care Time: No Discharge Plan Discharge Clinical Impression: Strep throat Patient Disposition: Home, Self-Care Condition: Stable Instructions: Antibiotic Form, Strep Throat (DC) Additional Instructions: After 24-48 hours on antibiotics, Throw the toothbrush away, start using a new one. Please be sure to wash bed linens especially pillow cases. Repeat once you finish the antibiotics. Do not share drinks. Take Motrin alternating with Tylenol for pain and fever alternating every 4 hours. Increase fluids, avoid caffeine. Give plenty of water, juice, Gatorade, Pedialyte, ice pops in Jell-O Follow up with Primary provider if not getting better this week For new or worsening symptoms go directly to the emergency room Patient Language: Armenian Prescriptions: New amoxicillin 875 mg tablet 875 mg PO Q12H Qty: 20 0RF No Action terbinafine HCl 1 % cream 1 applic TOPICAL DIRECTED Follow-up/Referrals: Nayely,Teresa Schilling MD [Primary Care Provider] - 2 Weeks (express care follow up ) Stand Alone Forms: Work/School Release IP Time of Disposition: 08:27
[2024-07-03 08:19] VITALS: BP 133/83; PULSE 104; RESP 20; TEMP 37.8; O2SAT 100
[2024-07-03 08:32] LABS: EDSTREPNEGPOS1 Positive (Negative)
== END 2024-07-03 08:35 | disposition home or self-care (01) ==
PROVIDERS: Emergency Provider Nurse Practitioner; PCP Family Medicine
DX: J02.0 Streptococcal pharyngitis (principal)
CPT/HCPCS: 87880; 99213; G0463